=== PATIENT | female | born 1965 | race Two or more races ===

== ENCOUNTER 2024-11-27 08:17 | Emergency (ER) | payer MEDICAID, SELFPAY ==
[2024-11-27 08:28] VITALS: BP 161/90; PULSE 80; RESP 18; TEMP 36.8; O2SAT 97; BMI 31.1
--- NOTE | 2024-11-27 08:58 | EDNOTE_ITS ---
<Statement entered by Brigitte Foy MD - 11/28/24 15:10> As co-signing physician, I was present and available for consult prn. I concur with the plan and care as documented by the midlevel provider. ED Female Urogenital RME/HPI General Chief complaint: Urogenital-Female Stated complaint: BURNING W/URINATION Time Seen by Provider: 11/27/24 08:36 Arrival date/time: 11/27/24 08:17 This is a 58-year-old female that comes in with with complaints of burning with urination. Patient also has burning to her rectal area. Mostly when she is having a bowel movement. Patient was recently given antibiotics for UTI but states she does not feel like it is working. Patient also complains of pain to her lower back and left buttock area.. Patient denies any fall or trauma. Patient reports history of diabetes, htn, and high cholesterol. Related Data Home Medications ?Medication ?Instructions ?Recorded ?Confirmed calcium 600 mg (as 1 tab PO DAILY 06/09/1805/19 carbonate)-vitamin D3 5 mcg (200 unit) capsule (Calcium 600 + D(3)) metformin 500 mg tablet 500 mg PO DAILY 06/09/18 exrrwbpv-loc-edfv-FA-Ca carb-vit K 1 tab PO QDAY 06/0906/09/18 18 mg iron-400 mcg-500 mg tablet (Women's Multivitamin) simvastatin 10 mg tablet 1 tab PO HS 06/09/18 8 Previous Rx's ?Medication ?Instructions ?Recorded hydrocodone 5 mg-acetaminophen 325 1 tab PO QID PRN pa in #10 tabs 06/10/18 mg tablet ([place]) ibuprofen 600 mg tablet 600 mg PO QID PRN fever or p ain 06/10/18 #30 tabs ibuprofen 800 mg tablet 800 mg PO Q6H PRN pain #14 t abs 11/27/24 phenylephrine HCl 0.25 % rectal 1 supp [place] BID PRN hemo rrhoids #12 11/27/24 suppository (Preparation H (pe)) ea Allergies Allergy/AdvReac Type Severity Reaction Status Date / Time No Known Allergies Allergy Verified 11/27/24 08:21 Review of Systems Review of Systems Systems Reviewed: All systems reviewed, normal except as documented Past Medical History Past Medical History Comments PMH COMMENT: Diabetes, high blood pressure and high cholesterol ED Exam Narrative Physical exam: VITAL SIGNS: Reviewed. GENERAL APPEARANCE: Alert and interactive, follows commands, no acute distress HEAD AND FACE: Non-traumatic. ENT: PERRL, pink conjunctivitis, eyelid no trauma, Mucous membrane moist. NECK: Supple, nontender, no nuchal rigidity. CHEST: No tenderness, no crepitus, no paradoxical movement, no retractions. LUNGS: Clear, well ventilated, symmetric HEART: Regular rate, regular rhythm, no murmur, no gallops. ABDOMEN: Soft, nondistended, no guarding, nontender, no rebound, no masses, NEUROLOGICAL: Gross motor function intact sensory function intact, Appropriate for age. MUSCULOSKELETAL: low back nontender, full range of motion. EXTREMITIES: No redness no swelling no skin breakdown on bilateral foot and leg. Distal neurovascular status intact bilateral foot SKIN: Color pink, dry, no rash, no lacerations, no abrasions, no contusions. Rectal Exam Rectal exam: Present normal inspection and normal rectal tone Course Quality Measures none Orders Category Date Time Status Urinalysis, C/S if Indicated Stat Lab 11/27/24 09:21 Completed Urine Culture Stat Lab 11/27/24 09:21 Received Acetaminophen Tab [Tylenol ES Tab] Med 11/27/24 08:52 Discontinued 1,000 mg PO X1 ONE Hydrocortisone Acet [Anusol Supp] Med 11/27/24 08:52 Discontinued 25 mg IL X1 ONE Ibuprofen Tab [Motrin Tab] Med 11/27/24 08:52 Discontinued 800 mg PO X1 ONE Preparation H Supp Med 11/27/24 12:08 Discontinued 1 ea IL X1 ONE Vital Signs Vital signs: Vital Signs Temperature 98.2 F 11/27/24 08:28 Pulse Rate 80 11/27/24 08:28 Respiratory Rate 18 11/27/24 08:28 Blood Pressure 161/90 H 11/27/24 08:28 Pulse Oximetry (%) 97 11/27/24 08:28 Oxygen Delivery Method Room Air 11/27/24 08:28 Urogenital - Female MDM Narrative MDM Narrative:: This is a 58-year-old female that comes in with with complaints of burning with urination. Patient also has burning to her rectal area. Mostly when she is having a bowel movement. Patient was recently given antibiotics for UTI but states she does not feel like it is working. Patient also complains of pain to her lower back and left buttock area.. Patient denies any fall or trauma. Patient reports history of diabetes, htn, and high cholesterol. I spoke to patient at length patient is a poor historian. I gave patient Tylenol and ibuprofen for pain. This seems to have helped patient. Patient points to area above the left buttock where she has pain in the surrounding muscles. Patient denies any trauma patient denies any fall. No palpable abscess no erythema no induration. Patient describes a burning to her rectal area. I did a rectal exam on patient and no palpable hemorrhoids found. She has normal rectal tone. No bleeding noted to the rectum. No irritation around the rectum. Will see if suppositories will help this problem. I did speak to patient at length she does already have a follow-up appointment with her primary provider. I am going to leave patient on her current antibiotic that she is on I will send her home with some ibuprofen to see if that helps pain and also some suppositories. Patient is to follow-up with urine culture with primary provider. I spoke to patient and let her know that if symptoms change or worsen she may come back here to the emergency room if not follow-up with scheduled appointment with primary provider. Patient verbalizes understanding and comfortable plan of care. Patient data External records reviewed:: [facility] previous records Clinical information provided by:: patient Social determinants that could affect healthcare access:: none Patient has the following chronic illnesses:: See HPI How is presenting disease/condition affected by chronic disease/condition?: uneffected by Evaluation data The following diagnostics were reviewed and interpreted by me:: lab results Lab and/or radiology exams considered but not ordered:: None Interpretation Summary: See note Medications / Prescriptions Medications or Prescriptions considered but not ordered:: none Medication administrations:: Medication Administration History Discontinued Medications Acetaminophen (Acetaminophen 500 Mg Tablet) 1,000 mg PO X1 ONE Stop: 11/27/24 08:53 Last Admin: 11/27/24 09:31 Dose: 1,000 mg Documented By: TM Hydrocortisone Acetate (Hydrocortisone Acet 25 Mg Supp) 25 mg IL X1 ONE Stop: 11/27/24 08:53 Last Admin: 11/27/24 09:32 Dose: Not Given Documented By: TM Non-Admin Reason: Discontinued Ibuprofen (Ibuprofen Tab 400 Mg Tablet) 800 mg PO X1 ONE Stop: 11/27/24 08:53 Last Admin: 11/27/24 09:31 Dose: 800 mg Documented By: TM Phenyleph/Shark Oil/[place] Butter (Preparation H 1 Supp.Rect) 1 ea IL X1 ONE Stop: 11/27/24 12:09 Last Admin: 11/27/24 12:14 Dose: Not Given Documented By: DB Non-Admin Reason: Cancelled by Provider See MAR Consultations Consultation(s) initiated? (list below): No Diagnosis Urogenital Female Differential Diagnosis: urinary tract infection and other (Contusion, back pain, hemorrhoid.) Most likely diagnosis given after review of the tests above:: UTI and lower back pain. Admission Indicated Admission indicated?: not indicated Admission Request Was there a request for admission?: No Disposition Plan Disposition Plan: Discharge Discharge Attestation Discharge Attestation: The patient and all family members were given an opportunity to ask questions and understood the discharge instructions. Discharge instructions specifically effects, indications for sooner follow up or return to the emergency department, and the expected course of current diagnosis. Patient condition: Stable Discharge Plan Plan Patient Disposition: HOME (Self Care) Patient condition on transfer: Stable Prescriptions/Referrals Prescriptions/Med Rec: New Preparation H (pe) 0.25 % suppository 1 supp IL BID PRN (Reason: hemorrhoids) Qty: 12 0RF ibuprofen 800 mg tablet 800 mg PO Q6H PRN (Reason: pain) Qty: 14 0RF No Action metformin 500 mg Tablet 500 mg PO DAILY simvastatin 10 mg Tablet 1 tab PO HS calcium carbonate-vitamin D3 [Calcium 600 + D(3)] 600 mg calcium- 200 unit Capsule 1 tab PO DAILY mp-ur-edox-FA-Ca carb-vit K [Women's Multivitamin] 18 mg iron-400 mcg-500 mg Tablet 1 tab PO QDAY hydrocodone-acetaminophen [[place]] 5-325 mg tablet 1 tab PO QID MDD 4 PRN (Reason: pain) Qty: 10 0RF ibuprofen 600 mg tablet 600 mg PO QID PRN (Reason: fever or pain) Qty: 30 0RF Referrals: Raisa Farley MD [Primary Care Provider] - In 1 week Problem List Clinical Impression: UTI (urinary tract infection), Rectal burning, Back pain Patient/Caregiver Discharge Instructions Discharge Activity: activity as tolerated Education Materials: ED Back Pain (Acute or Chronic), ED CYSTITIS Female Adult Additional Instructions: Follow up with primary provider in 1-2 days. Come back to ED if symptoms change or worsen. May use suppositories at home to see if works if not working for rectal burning discontinue use. Keep scheduled appointment with primary provide r. Can back to emergency room symptoms change or worsen. Print Language: Prydeinig Stand Alone Forms: Chante Award Info., Patient Portal Info Letter [facility]ERETT/JOSE Supervising Physician EVERETT/JOSE Supervising Physician: nataly
[2024-11-27] MEDS: ACETAMINOPHEN 500 MG TABLET 1000 MG PO (09:31)
[2024-11-27] MEDS: IBUPROFEN TAB 400 MG TABLET 800 MG PO (09:31)
[2024-11-27 09:53] LABS: Collection Type, Urine Voided
[2024-11-27 10:11] LABS: Bilirubin,Urine Negative (Negative); Blood,Urine Negative (Negative); Clarity,Urine Clear (Clear/Hazy); Color,Urine Lt-Yellow (Lt Yel-Yel); Culture Indicated,Urine Not Indicated; Glucose, Urine Negative (Negative); Ketones,Urine Negative (Negative); Leukocyte Esterase,Urine Negative (Negative); Nitrite,Urine Negative (Negative); Protein,Urine 1+ (Neg - Trace); RBC,Urine 1 /hpf (0-3); Specific Gravity,Urine 1.025 (1.001-1.035); Squamous Epithelial Cell,Urine 2 /hpf (0-5); Urobilinogen,Urine Negative mg/dL (0.0-1.0); WBC,Urine 1 /hpf (0-5)
[2024-11-27 12:23] VITALS: BP 122/81; PULSE 65; RESP 16; TEMP 37; O2SAT 99
== END 2024-11-27 12:23 | disposition home or self-care (01) ==
PROVIDERS: Nurse Practitioner Family; Emergency Provider Emergency Medicine; PCP Obstetrics & Gynecology
DX: N39.0 Urinary tract infection, site not specified (principal); K62.89 Other specified diseases of anus and rectum; E11.9 Type 2 diabetes mellitus without complications; E78.00 Pure hypercholesterolemia, unspecified; I10 Essential (primary) hypertension; M54.50 Low back pain, unspecified
CPT/HCPCS: 81001; 87086; 99283; A9270